=== PATIENT | female | born 1980 | race African-American/Black ===

== ENCOUNTER 2017-07-10 00:10 | Emergency (ER) | payer OTHER ==
[2017-07-10] MEDS ORDERED: Ibuprofen 800 MG TAB ONE (00:29)
--- NOTE | 2017-07-10 07:58 | RAD ---
THREE VIWS LEFT ANKLE: HISTORY: Twisting injury with left ankle pain. FINDINGS: AP, lateral, and oblique views left ankle are obtained. The left ankle is unremarkable. No evidenc e of left ankle fractures, subluxations, or bony lesions seen. IMPRESSION: Normal 3 views left ankle. POS: [facility]
== END 2017-07-10 00:55 | disposition home or self-care (01) ==
LOC: NAV ERS 00:10
DX: S93.402A Sprain of unspecified ligament of left ankle, initial encounter (principal); E66.9 Obesity, unspecified; X50.1XXA Overexertion from prolonged static or awkward postures, initial encounter

== ENCOUNTER 2018-08-03 17:22 | Emergency (ER) | payer SELFPAY ==
[2018-08-03 17:59] LABS: #Basophils 0.1 thou/uL (0.0-0.2); #Eosinphils 0.1 thou/uL (0.0-0.7); #Lymphocytes 2.5 thou/uL (1.20-3.40); #Monocytes 0.4 thou/uL (0.11-0.59); #Neutrophils 2.7 thou/uL (1.40-6.50); %Basophils 0.9 % (0.0-1.0); %Eosinophils 1.5 % (0.0-10.0); %Lymphocytes 43.7 % (21.0-51.0); %Monocytes 7.1 % (0.0-10.0); %Neutrophils 46.8 % (42.0-75.0); Hemoglobin 13.1 g/dL (12.0-16.0); Mean Corpuscular Hemoglobin 27.7 pg (27.0-31.0); Mean Corpuscular Volume 86.6 fL (78.0-98.0); Mean Platelet Volume 9.1 fL (7.4-10.4); Platelet Count 206 thou/uL (130-400); RBC Distribution Width 10.9 % (11.5-14.5); Red Blood Cell (RBC) Count 4.73 mill/uL (4.20-5.40); White Blood Cell (WBC) Count 5.7 thou/uL (4.8-10.8)
[2018-08-03 18:12] LABS: Anion Gap 13 mmol/L (10-20); BUN (Urea Nitrogen) 11 mg/dL (7.0-18.7); Calc. Creatinine Clearance 0 mL/min (70-130); Calcium 9.9 mg/dL (7.8-10.44); Carbon Dioxide 26 mmol/L (22-29); Chloride 104 mmol/L (98-107); Estimated GFR-MDRD 73; Glucose 115 mg/dL (70-105); Potassium 4.4 mmol/L (3.5-5.1); Sodium 139 mmol/L (136-145)
== END 2018-08-03 18:16 | disposition home or self-care (01) ==
LOC: NAV ERS 17:22
DX: H81.392 Other peripheral vertigo, left ear (principal); E66.9 Obesity, unspecified
CPT/HCPCS: 36415; 80048; 85025; 93005

== ENCOUNTER 2019-11-10 00:58 | Emergency (ER) | payer SELFPAY ==
[2019-11-10] MEDS ORDERED: Ondansetron PF 4 MG/2 ML Vial ONE (01:39)
[2019-11-10] MEDS ORDERED: Sodium Chloride 0.9% 1,000 ML ONE (01:39)
[2019-11-10 01:42] LABS: #Lymphocytes 1.2 thou/uL (1.20-3.40); #Monocytes 0.3 thou/uL (0.11-0.59); %Basophils 0.4 % (0.0-1.0); %Eosinophils 0.1 % (0.0-10.0); %Lymphocytes 15.4 % (21.0-51.0); %Monocytes 3.8 % (0.0-10.0); %Neutrophils 80.3 % (42.0-75.0); Hemoglobin 13.3 g/dL (12.0-16.0); Mean Corpuscular HGB CONC 31.6 g/dL (32.0-36.0); Mean Corpuscular Hemoglobin 27.4 pg (27.0-31.0); Mean Corpuscular Volume 86.6 fL (78.0-98.0); Mean Platelet Volume 9.1 fL (7.4-10.4); Platelet Count 260 thou/uL (130-400); RBC Distribution Width 11.5 % (11.5-14.5); Red Blood Cell (RBC) Count 4.86 mill/uL (4.20-5.40); White Blood Cell (WBC) Count 7.5 thou/uL (4.8-10.8)
[2019-11-10 01:47] LABS: BHCG - Serum Negative (NEGATIVE); Pregs Control Bar Appear? YES (CONTROL BAR)
[2019-11-10 01:52] LABS: Potassium 2.9 mmol/L (3.5-5.1)
[2019-11-10 01:55] LABS: ALT (SGPT) 20 U/L (8-55); AST (SGOT) 27 U/L (5-34); Albumin 4.7 g/dL (3.5-5.0); Alkaline Phosphatase 103 U/L (40-110); Anion Gap 17 mmol/L (10-20); BUN (Urea Nitrogen) 13 mg/dL (7.0-18.7); Bilirubin, Total 0.2 mg/dL (0.2-1.2); Calc. Creatinine Clearance 0 mL/min (70-130); Calcium 9.6 mg/dL (7.8-10.44); Carbon Dioxide 24 mmol/L (22-29); Chloride 102 mmol/L (98-107); Estimated GFR-MDRD 62; Globulin 3.9 g/dL (2.4-3.5); Glucose 164 mg/dL (70-105); Lipase 12 U/L (8-78); Protein, Total 8.6 g/dL (6.0-8.3); Sodium 140 mmol/L (136-145)
[2019-11-10 02:04] LABS: Bilirubin Negative (Negative); Blood, Urine Moderate (Negative); Clarity Clear (Clear); Glucose, Urine (Dipstick) 100 mg/dL (Negative); Leukocyte Negative (Negative); Nitrite Negative (Negative); Protein, Urine (Dipstick) Negative (Neg-Trace); Urobilinogen 0.2 mg/dL (Less than 2)
[2019-11-10 02:07] LABS: RBC/HPF 0-3 HPF (0-3); Squamous Epithelial 0-3 HPF (0-3); WBC/HPF None Seen HPF (0-3)
[2019-11-10] MEDS ORDERED: Potassium Chloride 20 MEQ TAB ONE (02:07)
[2019-11-10 02:08] LABS: Bacteria/HPF None Seen HPF (None Seen)
--- NOTE | 2019-11-10 07:48 | RAD ---
EXAM: Chest 2 views: HISTORY: Epigastric pain COMPARISON: None. FINDINGS: There is a normal-sized cardiomediastinal silhouette. There is no evidence of consolidation, mass, or pleural effusion. The bones are unremarkable. IMPRESSION: No evidence of acute cardiopulmonary disease
== END 2019-11-10 03:05 | disposition home or self-care (01) ==
LOC: NAV ERS 00:58
DX: E87.6 Hypokalemia (principal); R10.10 Upper abdominal pain, unspecified; R51 Headache; R11.0 Nausea; I10 Essential (primary) hypertension; Z79.899 Other long term (current) drug therapy
CPT/HCPCS: 71046; 80053; 81003; 81015; 83690; 83735; 84484; 84703; 85025; 85379; 93005; 94760; 96361; 96374; J2405; J7050

== ENCOUNTER 2020-04-16 22:18 | Emergency (ER) | payer SELFPAY ==
[2020-04-16] MEDS ORDERED: Ketorolac Tromethamine 60 MG/2 ML VIAL ONE (22:38)
[2020-04-16] MEDS ORDERED: Ondansetron ODT 4 MG TAB ONE (22:38)
== END 2020-04-16 22:58 | disposition home or self-care (01) ==
LOC: NAV ERS 22:18
DX: R51 Headache (principal); I10 Essential (primary) hypertension; E66.9 Obesity, unspecified; Z79.899 Other long term (current) drug therapy
CPT/HCPCS: 96372; 99283; J1885; Q0162

== ENCOUNTER 2020-09-04 16:16 | Emergency (ER) | payer SELFPAY ==
--- NOTE | 2020-09-04 16:39 | RAD ---
Left ankle 3 views HISTORY: Left ankle pain. FINDINGS: Ankle mortise and talar dome are intact. Mild osteophytosis. Prominent soft tissue swelling over the medial malleolus. No acute fracture or dislocation. No significant fluid distention of the joint capsule evident. Loss of plantar arch apparent on the lateral view. Plantar enthesophyte at the inferior aspect of the calcaneus. IMPRESSION : Mild osteoarthritic changes. Pes planus. Plantar heel spur.
== END 2020-09-04 17:00 | disposition home or self-care (01) ==
LOC: NAV ERS 16:16
DX: S93.402A Sprain of unspecified ligament of left ankle, initial encounter (principal); E66.9 Obesity, unspecified; I10 Essential (primary) hypertension

== ENCOUNTER 2021-03-11 00:04 | Emergency (ER) | payer SELFPAY ==
[2021-03-11 00:34] LABS: Bilirubin Negative (Negative); Blood, Urine Trace (Negative); Clarity Clear (Clear); Glucose, Urine (Dipstick) Negative (Negative); Ketone, Urine Negative (Negative); Leukocyte Negative (Negative); Nitrite Negative (Negative); Protein, Urine (Dipstick) Negative (Neg-Trace); Specific Gravity, Urine 1.025 (1.005-1.030); Urobilinogen 0.2 mg/dL (Less than 2); pH, Urine 5.5 (5.0-9.0)
[2021-03-11 00:40] LABS: Bacteria/HPF None Seen HPF (None Seen); RBC/HPF 0-3 HPF (0-3); WBC/HPF 0-3 HPF (0-3)
[2021-03-11 00:41] LABS: Calcium Oxalate Crystals 2+ HPF (None Seen); Pregnancy Test - Urine (BHCG) Negative (Negative)
[2021-03-11 00:42] LABS: Pregu Control Background? CLEAR/WHITE (CLR/WHITE); Pregu Control Bar Appear? YES (CONTROL BAR); Specific Gravity 1.025 (1.002-1.036)
[2021-03-11 01:17] LABS: Wet Prep Clue Cells Clue Cells Absent (None Seen); Wet Prep Trichomonas Trichomonas Absent (None Seen)
[2021-03-11] MEDS ORDERED: Morphine 4 MG/ML VIAL ONE (01:19)
[2021-03-11] MEDS ORDERED: Ondansetron PF 4 MG/2 ML Vial ONE (01:19)
[2021-03-11 01:26] LABS: #Lymphocytes 2.3 thou/uL (1.20-3.40); #Monocytes 0.5 thou/uL (0.11-0.59); #Neutrophils 4.4 thou/uL (1.40-6.50); %Basophils 0.6 % (0.0-1.0); %Eosinophils 0.6 % (0.0-10.0); %Lymphocytes 32.1 % (21.0-51.0); %Monocytes 6.4 % (0.0-10.0); %Neutrophils 60.3 % (42.0-75.0); Hemoglobin 13.6 g/dL (12.0-16.0); Manual Diff?? NO; Mean Corpuscular HGB CONC 30.4 g/dL (32.0-36.0); Mean Corpuscular Volume 88.8 fL (78.0-98.0); Mean Platelet Volume 9.7 fL (7.4-10.4); Platelet Count 230 thou/uL (130-400); RBC Distribution Width 11.8 % (11.5-14.5); Red Blood Cell (RBC) Count 5.04 mill/uL (4.20-5.40); White Blood Cell (WBC) Count 7.3 thou/uL (4.8-10.8)
[2021-03-11 01:35] LABS: Carbon Dioxide 25 mmol/L (22-29); Glucose 133 mg/dL (70-105)
[2021-03-11 01:37] LABS: ALT (SGPT) 16 U/L (8-55); AST (SGOT) 20 U/L (5-34); Albumin 4.3 g/dL (3.5-5.0); Alkaline Phosphatase 92 U/L (40-110); Anion Gap 14 mmol/L (10-20); BUN (Urea Nitrogen) 12 mg/dL (7.0-18.7); Bilirubin, Total 0.2 mg/dL (0.2-1.2); Calc. Creatinine Clearance 0 mL/min (70-130); Calcium 9.4 mg/dL (7.8-10.44); Chloride 100 mmol/L (98-107); Globulin 3.8 g/dL (2.4-3.5); Potassium 3.8 mmol/L (3.5-5.1); Protein, Total 8.1 g/dL (6.0-8.3); Sodium 135 mmol/L (136-145)
[2021-03-12 21:05] LABS: Chlamydia by PCR Not Detected (NotDetected); GC by PCR Not Detected (NotDetected)
== END 2021-03-11 02:05 | disposition short-term general hospital (02) ==
LOC: NAV ERS 00:04
DX: R10.32 Left lower quadrant pain (principal); I10 Essential (primary) hypertension; E66.9 Obesity, unspecified; Z79.899 Other long term (current) drug therapy
CPT/HCPCS: 80053; 81003; 81015; 81025; 85025; 87210; 87480; 87491; 87510; 87591; 87660; 96374; 96375; J2270; J2405

== ENCOUNTER 2022-09-17 05:15 | Emergency (ER) | payer SELFPAY ==
[2022-09-17] MEDS ORDERED: Ibuprofen 800 MG TAB ONE (05:45)
== END 2022-09-17 06:40 | disposition home or self-care (01) ==
LOC: NAV ERS 05:15
DX: B34.9 Viral infection, unspecified (principal); I10 Essential (primary) hypertension; E66.9 Obesity, unspecified
CPT/HCPCS: 87804; 99283

== ENCOUNTER 2022-11-16 08:15 | Emergency (ER) | payer OTHER, SELFPAY | END 2022-11-16 08:55 | disposition home or self-care (01) | LOC: NAV ERS 08:15 | DX: L03.317 Cellulitis of buttock (principal); I10 Essential (primary) hypertension; E66.9 Obesity, unspecified; Z79.899 Other long term (current) drug therapy | CPT/HCPCS: 99283 ==

== ENCOUNTER 2023-08-26 08:13 | Emergency (ER) | payer OTHER | END 2023-08-26 10:26 | disposition home or self-care (01) | LOC: NAV ERS 08:13 | DX: M48.061 Spinal stenosis, lumbar region without neurogenic claudication (principal); R20.0 Anesthesia of skin; R20.2 Paresthesia of skin; I10 Essential (primary) hypertension | CPT/HCPCS: 70450; 72131 ==

== ENCOUNTER 2025-07-29 14:55 | Outpatient (CLI) | payer OTHER | END 2025-07-29 14:56 | disposition home or self-care (01) | LOC: NAV RAD 14:55 | PROVIDERS: ATTEND Nurse Practitioner Family | DX: M54.2 Cervicalgia (principal); M54.6 Pain in thoracic spine; M47.812 Spondylosis without myelopathy or radiculopathy, cervical region; M47.814 Spondylosis without myelopathy or radiculopathy, thoracic region; Z98.890 Other specified postprocedural states | CPT/HCPCS: 72040; 72072 ==

== ENCOUNTER 2025-08-27 14:45 | Emergency (ER) | payer BC ==
[2025-08-27] MEDS ORDERED: Ibuprofen 200 MG TAB ONE (16:06)
[2025-08-27 17:13] LABS: Glucose, Urine (Dipstick) Negative (Negative); Leukocyte Moderate (Negative); Protein, Urine (Dipstick) > or equal to 300 mg/dL (Neg-Trace); Specific Gravity, Urine 1.020 (1.005-1.030)
[2025-08-27 17:17] LABS: Bacteria/HPF 3+ HPF (None Seen); CAUTI Indications for Culture Acute Hematuria; RBC/HPF Greater than 50 HPF (0-3); WBC/HPF Greater than 50 HPF (0-3)
[2025-08-27 17:19] LABS: Urine Culture Reflex Yes Yes
[2025-08-27 17:47] LABS: #Basophils 0.1 thou/uL (0.0-0.2); #Eosinophils 0.0 thou/uL (0.0-0.7); #Lymphocytes 0.6 thou/uL (1.20-3.40); #Monocytes 0.7 thou/uL (0.11-0.59); #Neutrophils 15.5 thou/uL (1.40-6.50); %Basophils 0.8 % (0.0-1.0); %Eosinophils 0.0 % (0.0-10.0); %Lymphocytes 3.6 % (21.0-51.0); %Monocytes 4.1 % (0.0-10.0); %Neutrophils 91.4 % (42.0-75.0); Hematocrit 45.6 % (36.0-47.0); Hemoglobin 14.7 g/dL (12.0-16.0); Mean Corpuscular Hemoglobin 27.7 pg (27.0-31.0); Mean Corpuscular Volume 86.3 fl (78.0-98.0); Platelet Count 234 10x3/uL (130-400); Red Blood Cell (RBC) Count 5.29 mill/uL (4.20-5.40); White Blood Cell (WBC) Count 17.0 10x3/uL (4.8-10.8)
[2025-08-27 17:56] LABS: ALT (SGPT) 10 U/L (Less than 34); AST (SGOT) 31 U/L (11-34); Albumin 3.8 g/dL (3.1-4.5); Alkaline Phosphatase 71 U/L (40-110); Anion Gap 19 mmol/L (10-20); BUN (Urea Nitrogen) 25 mg/dL (7.0-18.7); Bilirubin, Total 0.6 mg/dL (0.3-1.2); Calc. Creatinine Clearance 0 mL/min (70-130); Calcium 8.9 mg/dL (7.8-10.44); Carbon Dioxide 20 mmol/L (22-29); Chloride 102 mmol/L (98-107); Globulin 4.0 g/dL (2.4-3.5); Glucose 178 mg/dL (70-105); Sodium 135 mmol/L (136-145)
[2025-08-27] MEDS ORDERED: cefTRIAXone (ROCEPHIN) 2 GM VIAL ONE (18:04)
[2025-08-27 18:14] LABS: Potassium 6.3 mmol/L (3.5-5.1)
[2025-08-27 18:47] LABS: Anion Gap 19 mmol/L (10-20); BUN (Urea Nitrogen) 26 mg/dL (7.0-18.7); Calc. Creatinine Clearance 0 mL/min (70-130); Calcium 8.9 mg/dL (7.8-10.44); Carbon Dioxide 17 mmol/L (22-29); Chloride 105 mmol/L (98-107); Glucose 177 mg/dL (70-105); Potassium 5.6 mmol/L (3.5-5.1); Sodium 135 mmol/L (136-145)
[2025-08-27] MEDS ORDERED: Sodium Polystyrene Sulfonate 15 GM (60 mL) BOT ONE (19:03)
[2025-08-27] MEDS ORDERED: Calcium Chloride 1 GM/10 ML Abboject SYRINGE ONE (19:03)
== END 2025-08-27 23:20 | disposition short-term general hospital (02) ==
LOC: NAV ERS 14:45
DX: A41.9 Sepsis, unspecified organism (principal); N39.0 Urinary tract infection, site not specified; N28.9 Disorder of kidney and ureter, unspecified; I10 Essential (primary) hypertension; Z79.899 Other long term (current) drug therapy
CPT/HCPCS: 36415; 36416; 51702; 80053; 81001; 83605; 85025; 87040; 87077; 87086; 87149; 87428; 93005; 96365; 96375; J0696; J1815; J7030; Q0162